=== PATIENT | male | born 1970 | race Caucasian/White ===

== ENCOUNTER 2023-08-05 16:48 | Emergency (ER) | payer BC ==
[~2023-08-05] VITALS: Ht 170.2 cm; Wt 80.0 kg
[2023-08-05 16:50] VITALS: TEMP 98.5; O2SAT 100
[2023-08-05 18:03] VITALS: BP 137/85; PULSE 61; RESP 16
[2023-08-05] MEDS: HYDROCODONE/ACETAMINOPHEN 5/325MG TABLET PO ONE ×2 (18:03→19:57)
[2023-08-05] MEDS ORDERED: NAPR-1176 MT (20:00)
== END 2023-08-05 20:15 | disposition home or self-care (01) ==
LOC: ER 16:48
DX: S06.0X0A Concussion without loss of consciousness, initial encounter (principal); Y08.89XA Assault by other specified means, initial encounter; Y93.89 Activity, other specified; Y92.89 Other specified places as the place of occurrence of the external cause; Y99.8 Other external cause status
CPT/HCPCS: 70450; 70486; 99284; Z7610